=== PATIENT | female | born 1975 | race Two or more races ===

== ENCOUNTER 2020-09-11 08:15 | Inpatient (IN) | payer MEDICAID ==
[2020-09-09 09:57] LABS: APPEARANCE,URINE CLEAR; BILIRUBIN, URINE NEGATIVE (NEGATIVE); COLOR,URINE PALE YELLOW; GLUCOSE, URINE (UA) NEGATIVE (NEGATIVE); KETONES,URINE NEGATIVE (NEGATIVE); LEUKOCYTE ESTERASE ,URINE NEGATIVE (NEGATIVE); NITRITE,URINE NEGATIVE (NEGATIVE); PH,URINE 5 (4.5-8.0); PROTEIN,URINE NEGATIVE (NEGATIVE); UROBILINOGEN,URINE NORMAL MG/DL (0.0-1.0)
[2020-09-09 10:09] LABS: ANION GAP 8 mmol/L (5-15); BLOOD UREA NITROGEN 11 mg/dL (7-18); CALCIUM 8.6 MG/DL (8.5-10.1); CARBON DIOXIDE 26 MMOL/L (21-32); CHLORIDE 104 MMOL/L (98-107); CREATININE 0.6 MG/DL (0.55-1.30); POTASSIUM 3.7 MMOL/L (3.5-5.1); SODIUM 138 MMOL/L (136-145)
[2020-09-09 10:44] LABS: BASOPHILS % (AUTO) 0.6 % (0.0-2.0); EOSINOPHILS % (AUTO) 3.8 % (0.0-3.0); HEMATOCRIT 39.6 % (37.0-47.0); HEMOGLOBIN 14.2 G/DL (12.0-16.0); LYMPHOCYTES % (AUTO) 35.6 % (20.0-45.0); MEAN CORPUSCULAR VOLUME 86 FL (80-99); MONOCYTES % (AUTO) 7.6 % (1.0-10.0); NEUTROPHILS % (AUTO) 52.4 % (45.0-75.0); PLATELET COUNT 255 K/UL (150-450); RED CELL DISTRIBUTION WIDTH 11.6 % (11.6-14.8); WHITE BLOOD COUNT 6.7 K/UL (4.8-10.8)
--- NOTE | 2020-09-09 13:18 | Diagnostic Imaging Report ---
Indication: Cough Technique: 2 views of the chest Comparison: None Findings: There is a right chest port catheter in good position. There is some atelectasis at the left lung base. The lungs and pleural spaces are otherwise clear. Heart size is normal. The aorta is tortuous. Impression: No acute process. Findings as noted
--- NOTE | 2020-09-09 16:21 | Cardiology Report ---
APPROVED REPORT EKG Measurement Heart [id number] PA [id number] <Conclusion> Normal sinus rhythm Normal ECG
--- NOTE | 2020-09-10 12:45 | Pre-op HX & Phy Repo 2 SIG ---
DATE OF ADMISSION: 09/11/2020 SCHEDULED FOR SURGERY: September 11, 2020. HISTORY OF PRESENT ILLNESS: The patient is a 45-year-old female with invasive ductal carcinoma of the left breast who has undergone neoadjuvant chemotherapy who is now scheduled to undergo surgery including left breast partial mastectomy with preoperative needle localization and left axillary lymph node biopsy. The patient was seen in January of this year with a left breast mass for 2 months. Imaging revealed a 2.4 x 1.6 x 1.6 cm mass in the left breast 7 o'clock 2 cm from the nipple plus satellite lesions periareolar. Core biopsy revealed invasive poorly differentiated ductal carcinoma. Estrogen, progesterone, and HER2 receptor markers all positive. The patient was seen by Oncology and received neoadjuvant chemotherapy. PAST MEDICAL HISTORY/MEDICATIONS: Imodium, Compazine, Zofran as needed. ALLERGIES: Cisplatin OPERATIONS: section. REVIEW OF SYSTEMS: 1, para 1. She has regular menstrual periods. She has history of a lipoma of the right upper back. PHYSICAL EXAMINATION: GENERAL: The patient is 5 feet and 3 inches, 176 pounds. VITAL SIGNS: Within normal limits. HEENT: Within normal limits. LUNGS: Clear. HEART: Regular rhythm. BREASTS: Small to medium in size and ptotic. Right breast unremarkable. Left breast earlier had a palpable mass along the inferior areolar border between 5 o'clock and 7 o'clock but recently after the chemotherapy there is no palpable mass in the left inferior breast. There is no axillary, supraclavicular lymphadenopathy. ABDOMEN: Soft. PELVIC AND RECTAL: Per primary care. EXTREMITIES: Without edema. NEUROLOGIC: Physiologic. IMPRESSION: Invasive ductal carcinoma, left breast. ER, NM, HER2 positive, status post neoadjuvant chemotherapy. PLAN: Left breast partial mastectomy with preoperative needle localization and left axillary lymph node biopsy. I have had a full discussion with the patient regarding the nature of the surgery. Indications, alternatives, options, and risks including bleeding, infection, distortion of the breast or nipple, neuritis or neuralgia from the axillary surgery, need for drain postoperatively and the potential need for additional procedures including additional surgery based on final pathology reports. The patient understands and agrees to proceed. Migel Erickson M.D. DR: Maira JOB#: [id number] CC: RICARDO
[2020-09-11] VITALS (17 sets, daily range): BP systolic 104–133; BP diastolic 62–87
[~2020-09-11] VITALS: Ht 157.5 cm; Wt 83.0 kg
[2020-09-11] MEDS ORDERED: Bacitracin 50000 Units Vial ONE (09:17)
[2020-09-11] MEDS ORDERED: NeoSporin Gu Irrig 1ml Amp IRRIG ONE (09:17)
--- NOTE | 2020-09-11 09:22 | Pre-Procedure Note/Attestation ---
Pre-Procedure Note/Attestation Complete Prior to Procedure Planned Procedure: left Procedure Narrative: left breast partial mastectomy with pre-operative needle localization and left axillary lymph node biopsy Indications for Procedure Pre-Operative Diagnosis: invasive ductal carcinoma left breast Attestation I attest that I discussed the nature of the procedure; its benefits; risks and c omplications; and alternatives (and the risks and benefits of such alternatives), prior to the procedure, with the patient (or the patient's legal registration representative). I attest that, if there was a reasonable possibility of needing a blood transfusion, the patient (or the patient's legal registration representative) was given the [facility] standardized written summary, pursuant to the Jerome Pauline Blood Safety Act ([place] Health and Safety Code # 1645, as amended). I attest that I re-evaluated the patient just prior to the surgery and that there has been no change in the patient's H&P, except as documented below:none Migel Erickson MD Sep 11, 2020 09:22
--- NOTE | 2020-09-11 09:25 | Anethesia Preoperative Eval ---
Anesthesia Pre-op PMH/ROS General Date of Evaluation: Sep 11, 2020 Time of Evaluation: 09:49 Anesthesiologist: Ian ASA Score: ASA 3 Mallampati Score Class I : Soft palate, uvula, fauces, pillars visible Class II: Soft palate, uvula, fauces visible Class III: Soft palate, base of uvula visible Class IV: Only hard plate visible Mallampati Classification: Class II Surgeon: Georgina Diagnosis: Poorly Differentiated ductal Carcinoma Surgical Procedure: L Breast Partial Mastectomy with LND Anesthesia History: none Family History: no anesthesia problems Allergies: Coded Allergies: No Known Allergies (Unverified , 09/10/20) Medications: see eMAR Patient NPO?: Yes Past Medical History Neurologic/Psychiatric: Reports: depression/anxiety Hematology/Immune: Reports: other - Poorly Differentiated Ductal Carcinoma Other: obesity - BMI 32 PMH Narrative: Status Post Neoadjuvant Chemotherapy. Anesthesia Pre-op Phys. Exam Physician Exam Last Vital Signs Date Time Temp Pulse Resp B/P (MAP) Pulse Ox O2 Delivery O2 Flow Rate FiO2 09/11/20 09:12 Room Air 09/11/20 09:11 97.5 73 18 120/87 (98) 98 Constitutional: NAD Neurologic: CN 2-12 intact Cardiovascular: RRR Respiratory: CTA Gastrointestinal: S/NT/ND Airway Exam Mallampati Score: Class II MO: full ROM: full Teeth: missing, intact Anesthesia Pre-op A/P Labs Urine Test Test 09/11/20 08:25 Urine HCG, Qualitative Negative (NEGATIVE) Risk Assessment & Plan Assessment: ASA 3 Plan: GA, SED Status Change Before Surgery: No Pre-Antibiotics Dru Gram Ancef IV Given Within 1 Hr of Incision: Yes Time Given: 10:06 Bony Sosa MD Sep 11, 2020 09:24
[2020-09-11] MEDS ORDERED: HYDROcodone/Acetamin 7.5/325 tab ORAL PRN (09:30)
[2020-09-11] MEDS ORDERED: Hydromorphone 0.5mg/0.5ml inj IVP PRN (09:30)
[2020-09-11] MEDS ORDERED: Acetaminophen (Non formulary) 100 ML IV ONE (09:30)
[2020-09-11] MEDS ORDERED: LR 1000ml 1,000 ML IVLG SCH (09:30)
[2020-09-11] MEDS ORDERED: Ketorolac 30mg Inj IV PRN ×2 (09:30)
[2020-09-11] MEDS ORDERED: DiphenhydrAMINE 50mg/ml Inj IVP PRN (09:30)
[2020-09-11] MEDS ORDERED: oxyCODONE HCL/Acetaminophen 5/325mg ORAL PRN (09:30)
[2020-09-11] MEDS ORDERED: Meperidine 25mg/1ml Inj (FOR RIGORS ONLY) IV PRN (09:30)
[2020-09-11] MEDS ORDERED: Atropine Sulfate 0.4mg/ml inj IVP PRN (09:30)
[2020-09-11] MEDS ORDERED: fentaNYL 100 mcg/2 mL IV PRN (09:30)
[2020-09-11] MEDS ORDERED: Labetalol 5mg/ml 20ml vial IV PRN (09:30)
[2020-09-11] MEDS ORDERED: Midazolam 2mg/2ml Inj IVP PRN (09:30)
[2020-09-11] MEDS ORDERED: HYDROcodone/Acetamin 5/325 tab ORAL PRN (09:30)
[2020-09-11] MEDS ORDERED: Metoclopramide 10mg/2ml Inj IVP PRN ×2 (09:30→11:30)
[2020-09-11] MEDS ORDERED: LORazepam Inj 2mg/ml 1ml IV PRN (09:30)
--- NOTE | 2020-09-11 09:30 | Immediate Post-Op Evaluation ---
Immediate Post-Op Evalulation Immediate Post-Op Evalulation Procedure: L Breast Partial Mastectomy with LND Date of Evaluation: Sep 11, 2020 Time of Evaluation: 11:45 IV Fluids: 600 LR Blood Products: 0 Estimated Blood Loss: 10 Urinary Output: 0 Blood Pressure Systolic: 106 Blood Pressure Diastolic: 63 Pulse Rate: 88 Respiratory Rate: 16 O2 Sat by Pulse Oximetry: 99 Temperature (Fahrenheit): 97.5 Pain Score (1-10): 2 Nausea: No Vomiting: No Complications 0 Patient Status: awake, reacts, patent, none Hydration Status: adequate Dru Gram Ancef IV Given Within 1 Hr of Incision: Yes Time Given: 10:06 Bony Sosa MD Sep 11, 2020 09:30
--- NOTE | 2020-09-11 09:31 | 48 Hour Post Anesthesia Eval ---
Post Anesthesia Evaluation Procedure: L Breast Partial Mastectomy with LND Date of Evaluation: Sep 11, 2020 Time of Evaluation: 14:12 Blood Pressure Systolic: 112 0: 72 Pulse Rate: 91 Respiratory Rate: 18 Temperature (Fahrenheit): 98 O2 Sat by Pulse Oximetry: 97 Airway: patent Nausea: No Vomiting: No Pain Intensity: 2 Hydration Status: adequate Cardiopulmonary Status: Stable Mental Status/LOC: patient returned to baseline Follow-up Care/Observations: 0 Post-Anesthesia Complications: 0 Follow-up care needed: N/A Bony Sosa MD Sep 11, 2020 09:31
[2020-09-11] MEDS ORDERED: fentaNYL 100 mcg/2 mL IV ONE (09:33)
[2020-09-11] MEDS ORDERED: Lidocaine 1% MPF 10mg/ml 5ml ONE (09:33)
[2020-09-11] MEDS ORDERED: Lidocaine 1% Plain 30 ml INJ ONE (09:44)
[2020-09-11] MEDS ORDERED: NS Irrig 1000ml IRRIG ONE ×2 (09:46→10:07)
--- NOTE | 2020-09-11 11:26 | Brief Operative Note ---
Immediate Post Operative Note Operative Note Pre-op Diagnosis: invasive ductal carcinoma left breast Procedure: left breast partial mastectomy with pre-operative needle localization x 2, and left axillary lymph node biopsy Post-op Diagnosis: same Post-op Diagnosis: same as pre-op Findings: consistent w/pre-op dx studies Surgeon: rufina Anesthesiologist: thor Anesthesia: general Specimen: yes Complications: none Condition: stable Fluids: see anesthesia record Estimated Blood Loss: minimal Drains: PREETHI Implant(s) used?: No Migel Erickson MD Sep 11, 2020 11:26
[2020-09-11] MEDS ORDERED: HYDROmorphone 1mg/ml Carpuject SUBQ PRN (11:30)
--- NOTE | 2020-09-11 12:00 | Operative Note - Dictated ---
DATE OF OPERATION: 09/11/2020 SURGEON: Migel Erickson MD. STRINGED INSTRUMENT ASSEMBLER: None. ANESTHESIOLOGIST: Bony Sosa MD. TYPE OF ANESTHESIA: General. PREOPERATIVE DIAGNOSIS: Invasive ductal carcinoma, left breast. POSTOPERATIVE DIAGNOSIS: Invasive ductal carcinoma, left breast. OPERATION PERFORMED: Left breast partial mastectomy with preoperative needle localization x2 and left axillary lymph node biopsy. DESCRIPTION OF PROCEDURE: The patient was taken to the operating room and under general anesthesia with sequential compression device stockings in place, she was prepped and draped in the usual fashion. The patient had two biopsy-proven lesions of the left breast at 7 o'clock 2 cm from the nipple and both had been marked with localization wires and clips because she had an excellent response to preoperative neoadjuvant chemotherapy. A curvilinear inferior left breast incision was made achieving hemostasis with cautery. Flaps were dissected circumferentially and part of the nipple areolar complex elevated. The wires were brought into the field. The appropriate sector of breast tissue was resected and specimen radiograph confirmed the presence of both biopsy clips and both wires. Pathology inspected the tissue and could see only the post chemotherapy fibrosis response, the margins appeared clear. The field was irrigated with water and then antibiotic and the incision closed with interrupted 2-0 Vicryl deep dermal subcutaneous sutures followed by continuous 4-0 Monocryl subcuticular suture. A left axillary vertical incision was made achieving hemostasis with cautery and incising the clavipectoral fascia. Obvious enlarged lymph node was resected as lower level dissection using the Thunderbeat vessel sealing electrosurgical device. The specimen was given to pathology, confirmed the presence of the lymph nodes. The field was irrigated and hemostasis seen to be secured. Through a separate stab incision inferolaterally, a large flat Mohan-Garces was placed into the axilla and sutured to the skin with 2-0 nylon skin suture. The clavipectoral fascia was closed with interrupted 3-0 Vicryl, subcutaneous tissues closed with interrupted 3-0 Vicryl and the skin closed with continuous 4-0 Monocryl subcuticular suture. Tincture of benzoin and half-inch Steri-Strips were applied to both incisions followed by dry sterile dressings. Final sponge and needle counts were correct. The patient tolerated the procedure well and left the operating room in good condition. Don Andreina Erickson DR: JL JOB#: [id number] CC:
--- NOTE | 2020-09-11 13:25 | NUR ---
NURSE NOTES: Patient received from PACU via bed to room 309-1 on O2 3LNC, in stable condition. Patient awakens to name, easily. VSS. Oriented patient to room, medical equipment and call light. IV (LR) infusing to right hand, site asymptomatic. Denies pain, SOB, NV. Left axillary/breast surgical dressing CDI, surgical bra in place, PREETHI to left axillary, bulb empty/compressed. Belongings reviewed, signed, all remains at bedside. Call light in reach, bed in lowest position, will continue to monitor. Addendum: 09/11/20 at 1925 by Jennifer Malik RN Left hand/arm, warm, pulse palpable, wiggles fingers, hand grasps strong 4/5, capillary refill <3 seconds, denies NT.
[2020-09-11] MEDS: D5 1/2NS w/KCl 20mEq 1,000 ML IV SCH (14:59)
[2020-09-11] MEDS: HYDROcodone/Acetamin 5/325 tab ORAL PRN ×2 (15:07→22:36)
--- NOTE | 2020-09-11 15:45 | NUR ---
NURSE NOTES: Patient had first void on bedpan at this time, without difficulty, urine y/cl, large amount, skin care provided.
[2020-09-11] MEDS: ceFAZolin sod 1 GM in D5W 55 ML IV SCH (18:01)
--- NOTE | 2020-09-11 19:26 | NUR ---
NURSE HAND-OFF: Important Events on Shift:Post op patient received at 1325 to 309-1 Patient Status: stable Diet: regular Outputs: PREETHI: 5 ml Pending Orders: none Pending Results/Labs:none Pending MD notification:none Latest Vital Signs: Temperature 98.6 , Pulse 97 , B/P 124 /79 , Respiratory Rate 18 , O2 SAT 98 , Nasal Cannula, O2 Flow Rate 3.0 . Vital Sign Comment: none Latest Reynaga Fall Score: 35 Fall Risk: Medium Risk Safety Measures: Call light Within Reach, Bed Alarm , Side Rails Side Rails x2, Bed position Low and Locked. Fall Precautions: Yellow Socks Door Sign Patient Fall Education Report given to Bruce CRUZ.
--- NOTE | 2020-09-11 19:27 | NUR ---
NURSE NOTES: Received report from Jennifer CRUZ. Rounding is done. Patient is a/ox4. Denied any pain at this time. No any distress noted at this time. Breathing is even and unlabored with NC 3l/min. IV site is intact and iv fluid is running. surgical dressing is c/d/i. PREETHI is in place and draining well. All safety measures are provided. Bed is on alarm, locked and lowest position. Call light within reach. Will continue to monitor.
[2020-09-12] VITALS: BP 113/72
[2020-09-12] MEDS: ceFAZolin sod 1 GM in D5W 55 ML IV SCH (02:25)
[2020-09-12] MEDS: D5 1/2NS w/KCl 20mEq 1,000 ML IV SCH (02:26)
[2020-09-12 04:00] VITALS: BP 108/71
--- NOTE | 2020-09-12 07:23 | NUR ---
NURSE NOTES: Report received from Bruce RN, rounds made. Patient AOx4, calm, no distress on RA, no SOB. IV (D5 1/2 NS +20 KCL at 75 ml/hr) infusing to right hand, site asymptomatic. Left axillary/breast surgical dressing CDI, surgical bra in place, PREETHI to left axillary, bulb small amount of serosanguineous output/compressed. Left axillary pain 3/10, denies need for pain medication at this time. On regular diet, tolerated well, no NV. Call light in reach, bed in lowest position, will continue to monitor.
--- NOTE | 2020-09-12 07:32 | NUR ---
NURSE HAND-OFF: Important Events on Shift:[post-op care] Patient Status: [stable] Diet: [regular] Pending Orders: [n] Pending Results/Labs:[n] Pending MD notification:[n] Latest Vital Signs: Temperature 98.3 , Pulse 60 , B/P 108 /71 , Respiratory Rate 18 , O2 SAT 97 , Room Air, O2 Flow Rate 3.0 . Vital Sign Comment: [stable] Latest Reynaga Fall Score: 35 Fall Risk: Medium Risk Safety Measures: Call light Within Reach, Bed Alarm Zone 2, Side Rails Side Rails x2, Bed position Low and Locked. Fall Precautions: Yellow Socks Report given to [Jennifer RN].
[2020-09-12 08:00] VITALS: BP 114/63
--- NOTE | 2020-09-12 09:15 | NUR ---
NURSE NOTES: Neuro checks done. Left hand/arm, warm, pulse palpable, wiggles fingers, hand grasps strong 4/5, capillary refill <3 seconds, denies NT. Discharge supplies for tomorrow provided, at bedside: gloves, measuring cups, 4x4 gauze, paper tape, patient aware.
--- NOTE | 2020-09-12 09:20 | General Progress Note ---
Progress Note Progress Note AVSS c/o back pain similar to after chemotherapy treatments. Mild surgical pain. Not ambulating yet except to bathroom Left breast and axilla incisions clean with intact steristrips PREETHI 18cc serosang Imp: Pain and limited ability to ambulate Plan: PT mobility protocol Maintain as in-patient Teach use of PREETHI drain Migel Erickson MD Sep 12, 2020 09:20
[2020-09-12] MEDS ORDERED: Sterile Water Irrig 1000ml IRRIG ONE (10:00)
[2020-09-12] MEDS ORDERED: LR 1000ml ONE (10:00)
[2020-09-12] MEDS ORDERED: propofoL 1,000mg/100ml IV ONE (10:00)
[2020-09-12 12:00] VITALS: BP 108/66
[2020-09-12] MEDS: HYDROcodone/Acetamin 5/325 tab ORAL PRN (12:20)
--- NOTE | 2020-09-12 13:55 | NUR ---
CASE MANAGEMENT: INITIAL REVIEW 45-year-old female presented to hospital with invasive ductal carcinoma of the left breast SI:BREAST CA. VS: T 97.9 HR 70 RR 20 B/P 108/66 SATS 95% ON RA LABS: GLU 112 IS:DEXTROSE IV @ 75 ML/HR NORCO 5/325 PO Q4H PRN PATIENT ADMITTED TO MED/SURG 09/11/2020 @ 1120 DCP: HOME PLAN OF CARE: Left breast partial mastectomy with preoperative needle localization and left axillary lymph node biopsy
--- NOTE | 2020-09-12 14:59 | NUR ---
P. T Note: P.T evaluation completed. Pt is alert alert, O x 4 , pleasant and cooperative. Pt denied major pain but soreness from the incisions. Pt is Independent in all areas of ADL/functional mobilities and gait locomotion despite limited motion on L shoulder related to surgical incisions. Current functional status does not require skilled P.T service at this time. Educated pt on importance of OOB activities to prevent possible complications i.e deconditioning. Pt verbalize understanding. DC P.T services. Thank you for this referral.
[2020-09-12 16:00] VITALS: BP 119/66
--- NOTE | 2020-09-12 18:15 | NUR ---
NURSE NOTES: PT evaluation done at 1400. Patient ambulating in halls with PT, gait steady, moderate pace. Up to bathroom with nursing staff. Up to chair. Tolerated activity well.
--- NOTE | 2020-09-12 19:33 | NUR ---
NURSE HAND-OFF: Important Events on Shift: PT evaluation done, IVF discontinued (patient tolerating PO fluids well) Patient Status: stable Diet: regular Outputs: PREETHI: 5 ml Pending Orders: none Pending Results/Labs:none Pending MD notification:none Latest Vital Signs: Temperature 98.0 , Pulse 63 , B/P 119 /66 , Respiratory Rate 18 , O2 SAT 96 , Room Air, O2 Flow Rate 3.0 . Vital Sign Comment: none Latest Reynaga Fall Score: 35 Fall Risk: Medium Risk Safety Measures: Call light Within Reach, Bed Alarm Zone 2, Side Rails Side Rails x2, Bed position Low and Locked. Fall Precautions: Yes Yellow Socks Door Sign Patient Fall Education Report given to Wale RN.
--- NOTE | 2020-09-12 19:36 | NUR ---
NURSE NOTES: Received report from Jennifer CRUZ.The patient is alert and oriented x4 and doesn't seem to be in any distress at this time.She was able to ambulate to seat on the side chair watching TV without any assistance. She is on room air with Resp even and unlabored and the bilateral lung sounds clear on auscultation.She has a right hand 20g heplock that is patent and asymptomatic.Noted with Left PREETHI x1, surgical dressing noted on her left breast side that is clean and intact. She does not seem to be in any acute distress at this time.The bed in low and locked level, call light within easy reach and bedside rails up x2. Will continue to monitor as indicated.
[2020-09-12 20:00] VITALS: BP 107/71
[2020-09-13] VITALS: BP 110/72
[2020-09-13 04:00] VITALS: BP 109/66
--- NOTE | 2020-09-13 07:00 | NUR ---
NURSE NOTES: Received report from Wale RN, rounds made pt awake up in chair having breakfast, no s/s of distress on RA, denies any pain or discomfort at this time , L breast dressing intact clean , PREETHI drain L axillary , bulb to negative suction, pt has a RT hand 20G locked , call light with in reach , will continue to Monitor
--- NOTE | 2020-09-13 07:25 | NUR ---
HAND-OFF: Report given to Janae CRUZ.
[2020-09-13 08:00] VITALS: BP 117/74
[2020-09-13] MEDS ORDERED: Tubing IV Secondary IV ONE (09:20)
--- NOTE | 2020-09-13 09:34 | General Progress Note ---
Progress Note Progress Note AVSS Feeling much better with decreased pain and easier ambulation. Has learned care of PREETHI drain left breast and axilla incisions clean and dry PREETHI small amount serous drainage Imp: improved Plan; discharge Rx [place] 03/2325 #20 f/u 09/06/22 Instructions/limitations/supplies discussed/provided Migel Erickson MD Sep 13, 2020 09:34
[2020-09-13] MEDS ORDERED: NORCO 5-325 TA1 EAC1 ORAL (11:28)
--- NOTE | 2020-09-13 12:00 | NUR ---
NURSE NOTES: Patient discharged with family member in stable condition. Discharge instruction given to patient and family member and verbalized understanding. Belonging and prescription given to patient. IV and ID removed. Provided education regarding PREETHI and verbalized understanding. Instructed to follow up with MD. Patient ambulated out with all personal belongings with steady gait.
--- NOTE | 2020-09-15 14:45 | Discharge Summary ---
Discharge Summary Hospital Course Date of Admission Sep 11, 2020 at 14:23 Date of Discharge Sep 13, 2020 at 12:00 Admitting Diagnosis Invasive ductal carcinoma, left breast. Reason for Hospitalization: elective surgery GAMALIEL Zheng is a 45 year old female who was admitted on Sep 11, 2020 at 14:23 for Invasive ductal carcinoma, left breast. Patient was admitted for elective surgery. Procedures s/p 09/11/[address] Erickson Left breast partial mastectomy with preoperative needle localization x2 and left axillary lymph node biopsy. Hospital Course status post surgery course of recovery uneventful initially IV fluids s/p perioperative antibiotic Left breast and axilla incision remained clean with intact Steri-Strips PREETHI output closely monitor patient was taught how to use PREETHI drain patient was encourage out of bed and ambulate. pain management was addressed ; pain was controlled remained hemodynamically stable tolerated diet , IV fluids discontinued antiemetics were on board as needed patient clinically improved and was stable for discharge prescription for [place] 5/325 #20 provided patient learned how to care of PREETHI drain patient to follow up in the office as scheduled instructions/limitations/supplies discussed/provided FINAL DIAGNOSES Invasive ductal carcinoma, left breast. s/p Left breast partial mastectomy with preoperative needle localization x2 and left axillary lymph node biopsy. Discharge Medications Continued Medications: Hydrocodone Bit/Acetaminophen 5-325* ([place] 5-325 Tablet*) 1 Each Tablet 1 TAB ORAL Q6H PRN for FOR PAIN, #20 TAB 0 Refills Discharge Discharge Vital Signs Last Vital Signs Date Time Temp Pulse Resp B/P (MAP) Pulse Ox O2 Delivery O2 Flow Rate FiO2 09/13/20 09:00 Room Air 09/13/20 08:00 98.1 69 18 117/74 (88) 96 09/11/20 14:31 3.0 Discharge Disposition Patient was discharged home Discharge Instructions Discharge Instructions Special Instructions I have been assigned to complete a D/C Summary on this account. I was not involved in the patient management Mesha Mendez NP Sep 15, 2020 14:45
== END 2020-09-13 12:00 | disposition home or self-care (01) | DRG 363 ==
LOC: SUR 08:15 → 3E 14:23
PROC: 07B60ZX Excision of Left Axillary Lymphatic, Open Approach, Diagnostic (ICD-10-PCS; 2020-09-11)
PROC: 0HBU0ZZ Excision of Left Breast, Open Approach (ICD-10-PCS; principal; 2020-09-11 10:00)
DX: C50.312 Malignant neoplasm of lower-inner quadrant of left female breast (principal); Z92.21 Personal history of antineoplastic chemotherapy; Z88.8 Allergy status to other drugs, medicaments and biological substances; Z17.0 Estrogen receptor positive status [ER+]
CPT/HCPCS: 36415; 71046; 80048; 81001; 81025; 85025; 85610; 85730; 93005; 94003; 94150; J2180; J2405; U0002